=== PATIENT | male | born 1990 | race Caucasian/White ===

== ENCOUNTER 2021-07-24 08:11 | Emergency (ER) | payer MEDICAID ==
[~2021-07-24] VITALS: Ht 185.4 cm; Wt 85.9 kg
[2021-07-24] MEDS ORDERED: ondansetron/PF 4mg/2ml inj IV ONE (09:55)
[2021-07-24] MEDS ORDERED: normal saline 1000ML IV soln IVB ONE (09:55)
[2021-07-24] MEDS ORDERED: acetaminophen 325mg tablet PO ONE (09:55)
[2021-07-24] MEDS ORDERED: loperamide 2mg capsule PO ONE (09:55)
[2021-07-24 10:56] LABS: BASOPHILS % (AUTO) 0.3 % (0-1); EOSINOPHILS % (AUTO) 0 % (0-6); HEMATOCRIT 47.3 % (42.0-52.0); HEMOGLOBIN 16.7 g/dl (14.0-17.9); LYMPHOCYTES % (AUTO) 20.8 % (21-51); MEAN CORPUSCULAR HEMOGLOBIN 32.2 PG (27.0-31.0); MEAN CORPUSCULAR HGB CONC 35.4 g/dL (33.0-36.5); MEAN CORPUSCULAR VOLUME 90.8 FL (78-98); MEAN PLATELET VOLUME 8.9 FL (7.4-10.4); MONOCYTES # (AUTO) 1.2 X10'3 (0-0.9); MONOCYTES % (AUTO) 8.5 % (2-12); NEUTROPHILS # (AUTO) 10.1 X10'3 (1.8-7.7); NEUTROPHILS % (AUTO) 70.4 % (42-75); PLATELET COUNT 199 X10'3 (140-440); RED BLOOD COUNT 5.21 X10'6 (4.70-6.10); RED CELL DISTRIBUTION WIDTH 12.9 % (11.5-14.5); WHITE BLOOD COUNT 14.3 X10'3 (4.5-11.0)
[2021-07-24 11:09] LABS: ALANINE AMINOTRANSFERASE 74 U/L (12-78); ALBUMIN 4.5 G/DL (3.4-5.0); ALKALINE PHOSPHATASE 57 IU/L (46-116); ASPARTATE AMINO TRANSFERASE 25 U/L (10-37); BILIRUBIN,TOTAL 4.2 MG/DL (0.1-1.0); BLOOD UREA NITROGEN 42 MG/DL (7-18); BUN/CREATININE RATIO 30.4 (5.4-32.0); CHLORIDE 94 MMOL/L (99-107); CREATININE 1.38 MG/DL (0.60-1.10); GLUCOSE 111 MG/DL (70-104); POTASSIUM 3.4 MMOL/L (3.5-5.1); SODIUM 129 MMOL/L (135-145); eGFR 60 ML/MIN
[2021-07-24 11:14] LABS: LIPASE 121 U/L (73-393); MAGNESIUM 2.3 MG/DL (1.5-2.4)
[2021-07-24 11:21] LABS: ALBUMIN/GLOBULIN RATIO 1.2 (1.1-1.5); ANION GAP 10 (8-16); TOTAL CARBON DIOXIDE 24.6 MMOL/L (24-32); TOTAL PROTEIN 8.4 G/DL (6.4-8.2)
[2021-07-24] MEDS ORDERED: LOPE2CAP PO (11:25)
[2021-07-24] MEDS ORDERED: ONDA8TAB13 PO (11:25)
[2021-07-24 11:26] VITALS: BP 165/93
--- NOTE | 2021-07-24 12:00 | NUR ---
Pt given and understands d/c instructions. IV d/c'd, catheter was intact. Ambulatory with a steady gait.
== END 2021-07-24 12:00 | disposition home or self-care (01) ==
LOC: ER 08:11
DX: K52.9 Noninfective gastroenteritis and colitis, unspecified (principal); B34.9 Viral infection, unspecified; Z20.822 Contact with and (suspected) exposure to COVID-19; Z88.0 Allergy status to penicillin; Z79.899 Other long term (current) drug therapy
CPT/HCPCS: 36415; 80053; 83690; 83735; 84145; 84484; 85025; 87502; 87503; 87635; 96361; 96374; 99283; C9803; J2405; J7030